=== PATIENT | male | born 1965 ===

== ENCOUNTER 2023-08-28 16:31 | Outpatient (CLI) | payer OTHER, SELFPAY ==
--- NOTE | 2023-08-28 16:45 | CT_ITS ---
Patient: SEMAJ POLK Facility:?[facility] Patient ID:?[id number] Site Patient ID:?[id number]. Site :?[id number] Study:?CT Abdomen/Pelvis WITHOUT-08/28/2023 4:52:58 PM Ordering Physician:?DR. GILMORE Final Report: INDICATION: Abdominal hernia TECHNIQUE: CT abdomen and pelvis without contrast. COMPARISON: None. FINDINGS: Lower chest: Coronary artery calcification. Liver: Normal in size and attenuation. No masses. Gallbladder and bile ducts: No stones or inflammation. No biliary dilatation. Pancreas: Unremarkable. No mass or inflammation. Spleen: Normal in size. No masses. Adrenal glands: Normal in size. No nodules. Kidneys: Normal in size. No masses, stones, or hydronephrosis. GI tract: Colonic diverticulosis without diverticulitis. Normal appendix. Vasculature: Mild aortic atherosclerosis. Lymph nodes: No lymphadenopathy. Abdominal wall/Omentum/Peritoneum: Unremarkable. No sign of mass or infiltration. No free air or significant free fluid. Pelvis: Prior left inguinal hernia repair. Fat containing indirect inguinal hernia on the right. Bones: Unremarkable for age. IMPRESSION: 1. Fat containing right inguinal hernia. 2. Prior left inguinal hernia repair. 3. Coronary atherosclerosis and mild aortic atherosclerosis. Please note that all CT scans at this facility use dose modulation, iterative reconstruction, and/or weight-based dosing when appropriate to reduce radiation dose to as low as reasonably achievable. Dictated by Kenn Cintron MD @ 08/29/2023 10:59:50 AM (Electronic Signature)
== END 2023-08-28 16:32 | disposition home or self-care (01) ==
LOC: CT 16:32
PROVIDERS: Visit Provider Surgery
DX: K46.9 Unspecified abdominal hernia without obstruction or gangrene (principal); K43.2 Incisional hernia without obstruction or gangrene; I70.0 Atherosclerosis of aorta
CPT/HCPCS: 74176

== ENCOUNTER 2024-07-12 12:10 | Emergency (ER) | payer OTHER, SELFPAY ==
[2024-07-12] VITALS (10 sets, daily range): BP systolic 112; BP diastolic 68; PULSE 87–119; RESP 18; TEMP 36.9; O2SAT 93–97; BMI 26.0
--- OUTSIDE RECORDS SUMMARY | 2024-07-12 12:12 | XMS_ITS | Clinical Summary ---
Author Organization [facility] Address [place], [place] [address] Care Team Providers Care Animal Humane Agent Supervisor Name Role Phone Pcp, No Primary Care Provider Unavailabl e Allergies No known active allergies Medications fluocinonide 0.05% topical (LIDEX) 0.05 % creamIndicatio ns:Rash Apply topically to affected area(s) 2 times daily. 60 g 2 4 Active metFORMIN (GLUCOPHAGE XR) 500 mg Extended-Relea se tablet Take 1 tablet by mouth once daily. 0 8 Active naproxen (NAPROSYN) 500 mg tablet Take 1 tablet by mouth once daily with a meal. 0 8 Active aspirin (ECOTRIN) 81 mg enteric coated tablet Take 1 tablet by mouth once daily with a meal. 0 8 Active rosuvastatin (CRESTOR) 10 mg tabletIndicati ons:Impaired fasting glucose Take 1 tablet by mouth at bedtime. 90 tablet 1 8 Active acetaminophen (TYLENOL) 325 mg cap Take by mouth continuous as needed. Active oxyCODONE-acet aminophen, 5-325 mg, (PERCOCET) 5-325 mg per tabletIndicati ons:Incarcerat ed left inguinal hernia Take 1-2 tablets by mouth every 6 hours if needed for Pain Max acetaminophen dose: 4000mg in 24 hrs. 15 tablet 8 Active sennosides-doc usate, 8.6-50 mg, (SENOKOT S) 8.6-50 mg tabletIndicati ons:Incarcerat ed left inguinal hernia Take 1 tablet by mouth 2 times daily. 20 tablet 8 Active rx oxyCODONE-acet aminophen, 5-325 mg, (PERCOCET 5-325) tablet (ED DC MED)Indication s:Incarcerated left inguinal hernia Take 1 tablet by mouth every 4 hours if needed 4 tablet 8 Active ibuprofen (ADVIL; MOTRIN) 800 mg tabletIndicati ons:Incarcerat ed left inguinal hernia Take 1 tablet by mouth every 6 hours if needed for Pain. Maximum of 3200 mg in 24 hours. 60 tablet 8 Active indomethacin (INDOCIN) 25 mg capsuleIndicat ions:History of gout Take 1 capsule by mouth 3 times daily with meals. For gout flare. 21 capsule 9 Active Active Problems Problem Noted Date Diagnosed Date Bilateral inguinal hernia wi th obstruction and without gangrene 02/05/2018 Asthma 12/26/2013 Erectile dysfunction 01/23/2009 Impaired fasting glucose 09/05/2008 Gouty Arthropathy 09/05/2008 Hypertrophy of prostate with out urinary obstruction and other lower urinary tract symptoms (LUTS) 09/05/2008 Immunizations Name Administration Dates Next Due Influenza, IIV3 (Age >=3 years) 05/07/2012 Td (Age >=7 Years) 06/14/2018 Tdap 05/29/2005 Family History Medical History Relation Name Comments Diabetes Father b 1947 Arthritis Mother b 1952 Diabetes Paternal Aunt x2 Relation Name Status Comments Father Alive Mother Paternal Aunt Social History Tobacco Use Types Packs/Day Years Used Date Smoking Tobacco: Some Days Cigarettes Last attempted to quit: 06/29/2008 Smokeless Tobacco: Never Tobacco Cessation:Ready to Q uit: No; Counseling Given: Yes Comments:smokes 4 cigs per week Alcohol Use Standard Drinks/Week Comments Yes 1.7 (1 standard drink = 0.6 oz p ure alcohol) PHQ-2 Answer Date Recorded PHQ-2 Score 0 07/28/2018 Sex and Gender Information Value Date Recorded Sex Assigned at Not on file 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 Gender Identity Not on file Sexual Orientation Not on file Occupation Industry Job Start Date Job End Date [employer] Not on file Not on file Not on file Obstetrics History Last Filed Vital Signs Vital Sign Reading Time Taken Comments Blood Pressure 137/88 01/24/2021 11:32 PM CDT Pulse 118 01/24/2021 11:32 PM CDT Temperature 36.4 C (97.6 F) 01/24/2021 11:32 PM CDT Respiratory Rate 15 01/24/2021 11:32 PM CDT Oxygen Saturation 96% 01/24/2021 11:32 PM CDT Inhaled Oxygen Concentration - - Weight 77.7 kg (171 lb 3.2 oz) 01/24/2021 11:32 PM CDT Height 167.6 cm (5' 5.98) 01/24/2021 11:32 PM C DT Body Mass Index 27.65 01/24/2021 11:32 PM CDT Plan of Treatment Health Maintenance Due Date Last Done Comments HIV for age 15-65 1982 Hepatitis C screening for ag e 18-79 1985 Pneumococcal series for age 50+ (1 of 1 - PCV) 2017 Zoster (shingles) series for age 50+ (1 of 2) 2017 Depression screening for age 12+ 01/04/2019 01/05/20 18 BMI (ht and wt on same day) for age 18+ 02/06/2019 02/06/2018, 01/04/2018 COVID-19 vaccine series ( season) 2024 09/16/2020, 08/19/2020 Influenza for age 50-64 01/28/2024 05/07/2012 Fecal testing non-DNA (FIT,FOBT,iFOBT) for age 45-75 10/10/2024 10/11/2023, 09/28/2020 Lipids for age 45-75 10/26/2027 10/25/2022, 09/28/2020, 07/08/2020, Additional history exists Tetanus booster 06/14/2028 06/14/2018, 05/29/2005 Tdap Completed 05/29/2005 Medical Devices Implanted Type Area Mental Retardation Aide Device Identifier Shelf Expiration Date Model / Serial / Lot Mesh Inguinal Lt 4x6in 3-D Max - [id number] Implanted:Qty: 1 on 02/15/2018 by Barrington Beltran DO at [facility] Left: Inguinal [employer] 10/23/2022 [id number] / / [id number] Mesh Ventral 2.[address] W/Strap - [id number] Implanted:Qty: 1 on 02/15/2018 by Barrington Beltran DO at [facility] Abdomen [employer] 09/24/2019 [id number] / / [id number] Description:Umbilical mesh Procedures Procedure Name Priority Date/Time Associated Diagnosis Comments OCCULT BLOOD IFOBT STOOL Routine 10/11/2023 7:00 PM CDT LIPID PANEL Routine 10/25/2022 2:35 PM CDT from Last 3 Months or Most Recently Relevant to Health Maintenance Results * OCCULT BLOOD IFOBT STOOL (10/11/2023 7:00 PM CDT) STOOL BLOOD ,IFOBT Negative Negative 10/16/2023 4:51 PM CDT [facility] Stool STOOL SPECIMEN / Unknown 10/11/2023 7:00 PM CDT 10/16/2023 4:41 PM CDT Ana Linda NP LABORATORY Final Result [facility] [address] [place] [address] * (ABNORMAL) LIPID PANEL (10/25/2022 2:35 PM CDT) CHOLESTEROL,TOTAL 240(H) 100 - 199 mg/dL 10/26/2022 10:35 AM T [facility] TRIGLYCERIDES 746(H) <150 mg/dL 10/26/2022 10:35 AM T [facility] HDL CHOLESTEROL 48 >40 mg/dL 3 10:35 AM T [facility] NON-HDL CHOLESTEROL 192(H) <145 mg/dl 10/26/2022 10:35 AM [facility] CHOL/HDL RATIO 5.00(H) <4.50 10/26/2022 10:35 AM T [facility] LDL CHOLESTEROL 3 10:35 AM T [facility] Comment:Invalid LDL when Tri g >400. VLDL CHOLESTEROL COMMENT 10/26/2022 10:35 AM CDT [facility] Comment:Unable to calculate VLDL. PROVIDER ORDERED STATUS RANDOM 10/26/2022 10:35 AM CDT [facility] Blood BLOOD SPECIMEN / Unknown 10/25/2022 2:35 PM CDT 10/26/2022 9:47 AM CDT Yoel Rizzo MD CHEMISTRY Final Result [facility] [address] [place] [address] from Last 3 Months or Most Recently Relevant to Health Maintenance Advance Directives * Full Code (Latest Code Status on File) Date Activated Date Inactivated Comments 02/15/2018 8:14 AM 02/15/2018 11:19 PM Question Answer Comments Code Status Discussion: Discussed Care Teams Animal Humane Agent Supervisor Relationship Specialty Start Date End Date Pcp, No . PCP - General 06/03/24
--- NOTE | 2024-07-12 12:52 | ED_ITS ---
HPI - General Adult General Chief complaint: Nausea/Vomiting Stated complaint: Vomiting/Malaise Time Seen by Provider: 07/12/24 12:19 History of Present Illness HPI narrative: for the past 3 days patient does not have a job and has been drinking. Today patient vomited blood and is concerned about this wondering if able to get some medications. would like detox and some medication to help stop drinking and move forward. 4 days without of eating and drinking but last week had eaten and felt better. scared with the dark stools and blood in vomit. has pain in the head, knees, and feeling dizzy. will wake up with respiratory issues noticed head is in weird positions and unsure why this is. does not live with family and if know patient is drinking would be mad. 1/2 to 1 liter of [place] 59-year-old man presenting to the emergency department with concern of hematemesis. He would like to feel better. Acknowledging has been drinking too much over the last month. Prior to this sounds like had more regular appointment as well. Admits to prior history of alcohol with maybe drinking too many beers on the weekend but otherwise was not such a problem. Was not drinking hard liquor before. Has never tried detox before. Denies withdrawal symptoms He is now feeling very weak. Feels like he does not have the energy even to stand up sometimes. He is worried now as he was vomiting today and vomitus was dark and then blood tinged. Has also had darker stools. He is currently from his family living in his own apartment. Has a 20-year-old and a 24-year-old kids and knows that they would be terribly disappointed. The younger I believe lives in apartments in the same community here with mother. Is having some abdominal pain but more focusing on pain in lots of other joints. He would like to feel better. Would like to not disappoint his family is see becomes tearful discussing this. Last drink this morning about 3:00 a.m. Presented yesterday to the hospital but did want to stay I think feeling embarrassed with his intoxication Related Data Home Medications ?Medication ?Instructions ?Recorded ?Confirmed allopurinol 100 mg tablet 200 mg PO DAILY 09/09/22 07/12/24 aspirin 81 mg tablet,delayed 81 mg PO DAILY 09/09/22 07/12/24 release indomethacin 25 mg capsule 25 mg PO TID PRN gout pain 09/09/22 07/12/24 lisinopril 5 mg tablet 5 mg PO DAILY 09/09/22 07/12/24 rosuvastatin 10 mg tablet 10 mg PO HS 09/09/22 07/12/24 famotidine 20 mg tablet 20 mg PO BID 08/24/23 07/12/24 metformin 500 mg tablet,extended 2,000 mg PO DAILY 07/12/24 07/12/24 release 24 hr Allergies Allergy/AdvReac Type Severity Reaction Status Date / Time No Known Drug Allergies Allergy Verified 07/12/24 12:41 Review of Systems Status of ROS: Reports: 6 or more systems reviewed and unremarkable except as noted in History and below PFSH PFS Social History Smoking Status: Current some day smoker How often do you have a drink containing alcohol: 4 or more times a week How many standard drinks containing alcohol do you have on a typical day: 5 or 6 How often do you have six or more drinks on one occasion: Daily or almost daily AUDIT-C Alcohol total score: 10 Exam Narrative: Exam Narrative: Pleasant. Intermittently little tearful. Does seem generally fatigued. Skin is warm and dry. No indication of self-harm. Lower extremities are without edema. Well-perfused. Abdomen is soft and tender in the epigastrium. No peritoneal signs otherwise. No masses noted. Oropharynx is unremarkable maybe little sticky. Lungs are clear. Heart is tachycardic in a regular rhythm. Cranial nerves 2-12 intact. Const: Vital Signs, click to edit/add: Vital Signs - 24 hr 07/12/24 12:25 07/12/24 13:45 07/12/24 14:37 Temperature 98.4 F Pulse Rate [Pulse Oximeter] 119 H 100 108 H Respiratory Rate 18 Blood Pressure [Ri ght Upper Arm] 112/68 Pulse Oximetry 95 97 97 Oxygen Delivery Me thod Room Air Room Air Room Air Documenting provider has reviewed patient's vital signs: yes Course Vital Signs Vital signs: Initial Vital Signs Temperature 98.4 F 07/12/24 12:25 Temperature Source Temporal Artery Scan 07/12/24 12:25 Pulse Rate 119 H 07/12/24 12:25 Respiratory Rate 18 07/12/24 12:25 Blood Pressure 112/68 07/12/24 12:25 Blood Pressure Mean 82 07/12/24 12:25 Blood Pressure Position Sitting 07/12/24 12:25 Pulse Oximetry 95 07/12/24 12:25 Oxygen Delivery Method Room Air 07/12/24 12:25 Vital Signs Temperature 98.4 F 07/12/24 12:25 Pulse Rate 119 H 07/12/24 12:25 Respiratory Rate 18 07/12/24 12:25 Blood Pressure 112/68 07/12/24 12:25 Pulse Oximetry 95 07/12/24 12:25 Oxygen Delivery Method Room Air 07/12/24 12:25 Temperature 98.4 F 07/12/24 12:25 Pulse Rate 87 07/12/24 15:30 Respiratory Rate 18 07/12/24 12:25 Blood Pressure 112/68 07/12/24 12:25 Pulse Oximetry 96 07/12/24 15:30 Oxygen Delivery Method Room Air 07/12/24 14:37 Medications Administered Medications: Discontinued Medications Generic Name Dose Route Start Last Admin Trade Name Freq PRN Reason Stop Dose Admin Sodium Chloride 1,000 mls @ 1,000 mls/hr 07/12/24 13:08 07/12/24 14:24 0.9 % Sodium Chloride 1000 Ml IV 07/12/24 14:07 Infused .Q1H ONE Infusion Lactated Ringer's 500 mls @ 1,000 mls/hr 07/12/24 14:51 07/12/24 15:45 Lactated Ringers 500 Ml IV 07/12/24 15:20 Infused .Q30M ONE Infusion Ketorolac Tromethamine 30 mg 07/12/24 14:08 07/12/24 14:22 Ketorolac 30 Mg/Ml Inj IVP 07/12/24 14:09 30 mg ONCE ONE Administration Lorazepam 0.5 mg 07/12/24 15:23 07/12/24 15:52 Lorazepam 2 Mg/Ml Inj IVP 0.5 mg ONCE PRN Administration nausea Omeprazole 40 mg 07/12/24 14:26 07/12/24 14:39 Omeprazole [address] PO 07/12/24 14:27 40 mg ONCE ONE Administration Ondansetron HCl 4 mg 07/12/24 13:08 07/12/24 13:42 Ondansetron 2 Mg/Ml Inj IVP 07/12/24 13:09 4 mg ONCE ONE Administration Medical Decision Making MDM Narrative Medical decision making narrative: Will monitor for repeated hematemesis, bleeding. Presumably some component of alcohol withdrawal here. Encourage toward detox. May have some component of pancreatitis, alcoholic gastritis, Lilli-Liu tears, anxiety, monitor for more significant withdrawal symptoms. Hydrate. PPI. No further vomiting or bleeding evidence during time in the emergency department. Overall feeling improved. Labs are not unexpected and overall reassuring with hemoglobin of 11.8, elevated transaminases. Lipase was also elevated at a little over 400. Tolerating oral intake prior to departure. He did not desire formal detox. Friend coming to pick him up. Will practice sobriety on his own. See patient discharge plan for further discussion Focus on hydration with fluid other than alcohol. Recommending a slow advance of diet over the next couple of days. Diluted juices, soup process, crackers, rice, toast. You know that you need to stop drinking alcohol. This is a good 1st step. Let your friend help you clear your apartment of alcohol. Please schedule follow-up in clinic to arrange next steps in care. You might need an endoscopy and a colonoscopy. Mostly though you just need to stop drinking. I would encourage you to begin attending regular AA meetings. Return for increase in bleeding, intractable vomiting. Prescribing promethazine for nausea, omeprazole for stomach inflammation and a multivitamin from [facility]. Medical Records Medical records reviewed: Yes I reviewed the patient's medical records Lab Data Lab results reviewed: Yes I reviewed the patient's lab results Labs: Lab Results 07/12/24 Range/Units 13:28 WBC 3.29 L (4.50-11.00) K/uL RBC 3.85 L (4.30-5.90) m/uL Hgb 11.8 L (13.5-17.5) gm/dL Hct 34.3 L (37.0-53.0) % MCV 89 (80-100) fL MCH 31 (26-34) pg MCHC 34 (32-36) gm/dL RDW Coeff of Jennifer 13.5 (11.5-15.5) % Plt Count 117 L (140-440) K/uL Neut % (Auto) 48.4 (42.0-72.0) % Lymph % (Auto) 41.6 (20-44) % [place] % (Auto) 7.6 (0.0-11.0) % Eos % (Auto) 0.6 (0.0-7.0) % Baso % (Auto) 0.9 (0.0-3.0) % Neut # (Auto) 1.60 L (1.7-7.0) K/uL Lymph # (Auto) 1.40 (0.90-2.90) K/uL [place] # (Auto) 0.30 (0.00-0.90) K/UL Eos # (Auto) 0.00 (0.00-0.50) K/uL Baso # (Auto) 0.00 (0.00-0.30) K/uL Abs Immat Gran (auto) 0.00 (0.00-0.30) K/uL Imm/Tot Granulo (auto) 0.9 % Sodium 135 (135-149) mmol/L Potassium 3.1 L (3.6-5.1) mmol/L Chloride 96 (96-114) mmol/L Carbon Dioxide 23 (20-32) mmol/L Anion Gap 16 H (7-15) mEq/L BUN 6 L (7-30) mg/dL Creatinine 0.5 (0.5-1.5) mg/dL Estimated Creat Clear 152.40 Estimated GFR 119 ml/min Glucose 304 H (60-115) mg/dL Calcium 8.6 (8.4-10.6) mg/dL Total Bilirubin 0.8 (0.1-1.5) mg/dL Direct Bilirubin 0.6 H (0.0-0.5) mg/dL AST 452 H (12-35) U/L ALT 292 H (4-50) U/L Alkaline Phosphatase 196 H (40-150) U/L Total Protein 7.2 (6.0-8.3) g/dL Albumin 4.6 (3.3-5.0) g/dL Lipase 412 H (23-300) U/L Ethyl Alcohol 0.00 L (0.01-0.03) % SARS-CoV-2 (PCR) Negative SARS-CoV-2 (Negative) Influenza Type A (PCR) Negative PCR FLU A (Negative) Influenza Type B (PCR) Negative PCR FLU B (Negative) RSV (PCR) Negative PCR RSV (Negative) Discharge Plan Discharge Clinical Impression: Alcohol withdrawal, Gastritis Patient Disposition: Home w/ Parent or Adult Condition: Improved Additional Instructions: Focus on hydration with fluid other than alcohol. Recommending a slow advance of diet over the next couple of days. Diluted juices, soup process, crackers, rice, toast. You know that you need to stop drinking alcohol. This is a good 1st step. Let your friend help you clear your apartment of alcohol. Please schedule follow-up in clinic to arrange next steps in care. You might need an endoscopy and a colonoscopy. Mostly though you just need to stop drinking. I would encourage you to begin attending regular AA meetings. Return for increase in bleeding, intractable vomiting. Prescribing promethazine for nausea, omeprazole for stomach inflammation and a multivitamin from [email or web address]. Conc?ntrese en la hidrataci?n con l?quidos que no carlos alberto alcohol. Le recomiendo que avance lentamente en la dieta magi los pr?ximos d?as. Jugos diluidos, sopas procesadas, galletas saladas, arroz, tostadas. Usted sabe que necesita dejar de beber alcohol. Crystal es un buen primer paso. Deje que venegas amigo le ayude a limpiar venegas apartamento de alcohol. Programe josep rasta de seguimiento en la cl?patricia para organizar los pr?ximos pasos en el cuidado. Es posible que necesite josep endoscopia y josep colonoscopia. Aunque en la mayor?a de los casos solo necesita dejar de beber. Le recomendar?a que comience a asistir a las reuniones regulares de AA. Vuelva por aumento del sangrado, v?mitos intratables. Le receto prometazina para las n?useas, omeprazol para la inflamaci?n del est?bennie y un multivitam?catrina de [facility] [employer]. Prescriptions: No Action rosuvastatin 10 mg tablet 10 mg PO HS lisinopril 5 mg tablet 5 mg PO DAILY indomethacin 25 mg capsule 25 mg PO TID PRN (Reason: gout pain) allopurinol 100 mg tablet 200 mg PO DAILY aspirin 81 mg tablet,delayed release (DR/EC) 81 mg PO DAILY famotidine 20 mg tablet 20 mg PO BID metformin 500 mg tablet extended release 24 hr 2,000 mg PO DAILY Follow Up/Referrals: Provider,Not a Local [Primary Care Provider] - Stand Alone Forms: [employer] Info Instructions
--- OUTSIDE RECORDS SUMMARY | 2024-07-12 13:23 | XMS_ITS | Clinical Summary ---
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 Gender Identity Not on file Sexual Orientation [...] Completed 05/29/2005 Medical Devices Implanted Type Area Truck Driver Heavy Device Identifier Shelf Expiration Date Model / Serial / Lot Mesh Inguinal Lt 4x6in 3-D Max - [id number] Implanted:Qty: 1 on 02/15/2018 by Barrington Beltran DO at [facility] Left: Inguinal [employer] 10/23/2022 [id number] / / [id number] Mesh Ventral 2.[address] W/Strap - [id number] Implanted:Qty: 1 on 02/15/2018 by Barrington Beltran DO at [facility] Abdomen [employer] 09/24/2019 [id number] / / [id number] Description:Umbilical mesh Procedures Procedure Name Priority Date/Time Associated Diagnosis Comments OCCULT BLOOD IFOBT STOOL Routine 10/11/2023 7:00 PM CDT LIPID PANEL Routine 10/25/2022 2:35 PM CDT from Last 3 Months or Most Recently Relevant to Health Maintenance Results * OCCULT BLOOD IFOBT STOOL (10/11/2023 7:00 PM CDT) STOOL BLOOD ,IFOBT Negative Negative 10/16/2023 4:51 PM CDT [facility] Stool STOOL SPECIMEN / Unknown 10/11/2023 7:00 PM CDT 10/16/2023 4:41 PM CDT Ana Linda NP LABORATORY Final Result [facility] [address] [place] [address] * (ABNORMAL) LIPID PANEL (10/25/2022 2:35 PM CDT) CHOLESTEROL,TOTAL 240(H) 100 - 199 mg/dL 10/26/2022 10:35 AM T [facility] TRIGLYCERIDES 746(H) <150 mg/dL 10/26/2022 10:35 AM T [facility] HDL CHOLESTEROL 48 >40 mg/dL 3 10:35 AM T [facility] NON-HDL CHOLESTEROL 192(H) <145 mg/dl 10/26/2022 10:35 AM [facility] CHOL/HDL RATIO 5.00(H) <4.50 10/26/2022 10:35 AM T [facility] LDL CHOLESTEROL 3 10:35 AM T [facility] Comment:Invalid LDL when Tri g >400. VLDL CHOLESTEROL COMMENT 10/26/2022 10:35 AM CDT [facility] Comment:Unable to calculate VLDL. PROVIDER ORDERED STATUS RANDOM 10/26/2022 10:35 AM CDT [facility] Blood BLOOD SPECIMEN / Unknown 10/25/2022 2:35 PM CDT 10/26/2022 9:47 AM CDT Yoel Rizzo MD CHEMISTRY Final Result [facility] [address] [place] [address] from Last 3 Months or Most Recently Relevant to Health Maintenance Advance Directives * Full Code (Latest Code Status on File) Date Activated Date Inactivated Comments 02/15/2018 8:14 AM 02/15/2018 11:19 PM Question Answer Comments Code Status Discussion: Discussed Care Teams Issuing Operator Relationship Specialty Start Date End Date Pcp, No . PCP - General 06/03/24
[2024-07-12 13:39] LABS: Basophils Percent Auto 0.9 % (0.0-3.0); Eosinophils Percent Auto 0.6 % (0.0-7.0); Hematocrit 34.3 % (37.0-53.0); Hemoglobin* 11.8 gm/dL (13.5-17.5); Immature Granulocytes Pct Auto 0.9 %; Lymphocytes Percent Auto 41.6 % (20-44); Mean Corpuscular HGB Conc 34 gm/dL (32-36); Mean Corpuscular Hemoglobin 31 pg (26-34); Mean Corpuscular Volume 89 fL (80-100); Monocytes Percent Auto 7.6 % (0.0-11.0); Neutrophils Percent Auto 48.4 % (42.0-72.0); Platelet Count* 117 K/uL (140-440); RDW Coefficient of Variation % 13.5 % (11.5-15.5); Red Blood Count 3.85 m/uL (4.30-5.90); White Blood Count* 3.29 K/uL (4.50-11.00)
[2024-07-12] MEDS: 0.9 % SODIUM CHLORIDE 1000 ml 1,000 ML IV (13:41)
[2024-07-12] MEDS: ONDANSETRON 2 MG/ML inj 4 MG IVP (13:42)
[2024-07-12 13:44] LABS: Slide Review Reflex No
[2024-07-12 13:58] LABS: Albumin* 4.6 g/dL (3.3-5.0); Chloride* 96 mmol/L (96-114); Sodium* 135 mmol/L (135-149)
[2024-07-12 13:59] LABS: Potassium* 3.1 mmol/L (3.6-5.1)
[2024-07-12 14:01] LABS: Alkaline Phosphatase* 196 U/L (40-150); Anion Gap 16 mEq/L (7-15); Aspartate Amino Transferase* 452 U/L (12-35); Bilirubin Direct* 0.6 mg/dL (0.0-0.5); Bilirubin Total* 0.8 mg/dL (0.1-1.5); Blood Urea Nitrogen* 6 mg/dL (7-30); Carbon Dioxide* 23 mmol/L (20-32); Creatinine* 0.5 mg/dL (0.5-1.5); Estimated Glomerular Filt Rate 119 ml/min; Glucose* 304 mg/dL (60-115); Lipase* 412 U/L (23-300); Total Protein* 7.2 g/dL (6.0-8.3)
[2024-07-12 14:02] LABS: Alanine Aminotransferase* 292 U/L (4-50); Calcium* 8.6 mg/dL (8.4-10.6)
[2024-07-12 14:16] LABS: PCR FLU A Negative PCR FLU A (Negative); PCR FLU B Negative PCR FLU B (Negative); PCR RSV Negative PCR RSV (Negative); SARS PCR* Negative SARS-CoV-2 (Negative)
[2024-07-12] MEDS: KETOROLAC 30 MG/ML inj IVP (14:22)
[2024-07-12] MEDS: OMEPRAZOLE 20 MG CAPSULE DR 40 MG PO (14:39)
[2024-07-12] MEDS: LACTATED RINGERS 500 ML 500 ML 1000 ML IV (15:16)
[2024-07-12] MEDS: LORazepam 2 MG/ML inj 0.5 MG IVP (15:52)
== END 2024-07-12 16:21 | disposition home or self-care (01) ==
PROVIDERS: Emergency Provider Family Medicine
DX: F10.239 Alcohol dependence with withdrawal, unspecified (principal); K29.70 Gastritis, unspecified, without bleeding
CPT/HCPCS: 36415; 80048; 80076; 82077; 83690; 85025; 87631; 96374; 96375; 99284; T1013; A9270; J1885; J2060; J2405; J7030; J7120